=== PATIENT | female | born 1970 | race Asian ===

== ENCOUNTER 2018-09-27 20:31 | Emergency (ER) | payer OTHER ==
[~2018-09-27] VITALS: Ht 160 cm; Wt 59.0 kg
[2018-09-27 20:42] VITALS: BP_SYST 183
--- NOTE | 2018-09-27 20:44 | NUR ---
Patient to ER bed H1 to gown for evaluation. Side rails up.
[2018-09-27] MEDS ORDERED: cloNIDine HCL 0.1 MG TABLET PO ONE (20:45)
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
--- NOTE | 2018-09-27 21:15 | NUR ---
No adverse reactions noted after medication administration. Will continue to monitor.
--- NOTE | 2018-09-27 21:22 | NUR ---
ER MD Richards at bedside for medical evaluation.
[2018-09-27 21:54] VITALS: BP_SYST 126
--- NOTE | 2018-09-27 21:54 | NUR ---
Patient given written and verbal discharge instructions and verbalizes understanding. ER MD discussed with patient the results and treatment provided. Patient in stable condition. ID arm band removed. No Rx given. Patient educated on pain management and to follow up with PMD. Pain Scale 0/10. Opportunity for questions provided and answered.
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
== END 2018-09-27 21:55 ==
LOC: SED 20:31
DX: I10 Essential (primary) hypertension (principal)
CPT/HCPCS: 99283